=== PATIENT | female | born 1950 | race Caucasian/White ===

== ENCOUNTER 2019-09-22 13:59 | Outpatient (CLI) | payer MEDICARE, BC, SELFPAY ==
--- NOTE | 2019-09-22 14:34 | MM_ITS ---
WS: [id number] BILATERAL SCREENING DIGITAL MAMMOGRAM WITH CAD HISTORY: SCREENING COMPARISON: 08/27/2018 and 07/30/2017 Bilateral CC and MLO views submitted. Computer aided detection analyzed. Breast composition: There are scattered areas of fibroglandular density. No suspicious masses, microc alcifications or architectural distortion. Benign calcifications within each breast. MM/[place] [id number] IMPRESSION: BI-RADS: 2-Benign FOLLOW UP: 1 Year Follow-up
== END 2019-09-22 14:00 | disposition home or self-care (01) ==
PROVIDERS: Family Provider Internal Medicine; PCP Internal Medicine; Visit Provider Internal Medicine
DX: Z12.31 Encounter for screening mammogram for malignant neoplasm of breast (principal)
CPT/HCPCS: 77067

== ENCOUNTER 2020-03-07 14:54 | Outpatient (CLI) | payer MEDICARE, BC, SELFPAY ==
--- NOTE | 2020-03-07 15:00 | XR_ITS ---
WS: [id number] SCREENING DEXA SCAN Poly Adaptive CLINICAL INFORMATION: ASYMPTOMATIC POSTMENOPAUSAL STATUS COMPARISON: None. FINDINGS: The L1-L4 bone mineral density measures 1.339 g/cm2. This corresponds to a T score score of 1.3 and Z score of 2.2. Left femoral neck bone mineral density measures 1.108 g/cm2. This corresponds to a T score of 0.8 and Z score of 1.7. Right femoral neck bone mineral density measures 1.044 g/cm2. This corresponds to a T score 0.3of and Z score of 1.2. Mean femoral neck bone mineral density measures 1.076 g/cm2. This corresponds to a T score of 0.5 and Z score of 1.4. XR/XR DEXA axial skeleton* [id number] IMPRESSION: Normal bone mineralization. Patient's FRAX calculated 10 year probability for major osteoporotic fracture i s 8.7 % and osteoporotic hip fracture is 1.1%.
== END 2020-03-07 14:55 | disposition home or self-care (01) ==
LOC: RADWPI 14:59
PROVIDERS: Family Provider Internal Medicine; PCP Internal Medicine; Visit Provider Internal Medicine
DX: Z78.0 Asymptomatic menopausal state (principal)
CPT/HCPCS: 77080

== ENCOUNTER 2020-07-21 09:49 | Outpatient (CLI) | payer MEDICARE, BC, SELFPAY ==
--- NOTE | 2020-07-21 09:57 | US_ITS ---
WS: [id number] RENAL ULTRASOUND HISTORY: CKD STAGE 3 COMPARISON: None available. TECHNIQUE: 2-D and color Doppler imaging of the kidney submitted. Right kidney: 9.3 cm x 3.2 cm x 3.5 cm. Normal echogenicity with no hydronephrosis or mass. Left kidney: 9.4 cm x 3.7 cm x 4.2 cm. Normal echogenicity with no hydronephrosis or mass. Aorta: Normal. Urinary Bladder: Normal distention. US/US renal BI* [id number] IMPRESSION: Normal renal ultrasound.
== END 2020-07-21 09:50 | disposition home or self-care (01) ==
LOC: RAD 09:55
PROVIDERS: PCP Internal Medicine; Visit Provider Internal Medicine
DX: N18.30 Chronic kidney disease, stage 3 unspecified (principal)
CPT/HCPCS: 76770

== ENCOUNTER 2020-10-27 08:52 | Outpatient (CLI) | payer MEDICARE, BC, SELFPAY ==
--- NOTE | 2020-10-27 08:59 | MM_ITS ---
WS: [id number] BILATERAL SCREENING DIGITAL MAMMOGRAM WITH CAD HISTORY: SCREENING COMPARISON: 09/22/2019 and 08/27/2018 Bilateral CC and MLO views submitted. Computer aided detection analyzed. Breast composition: There are scattered areas of fibroglandular density. No suspicious masses, microc alcifications or architectural distortion. Benign rodlike calcifications and round calcifications in each breast. MM/[place] [id number] IMPRESSION: BI-RADS: 2-Benign FOLLOW UP: 1 Year Follow-up
== END 2020-10-27 08:53 | disposition home or self-care (01) ==
LOC: RADSHAW 08:58
PROVIDERS: PCP Internal Medicine; Visit Provider Internal Medicine
DX: Z12.31 Encounter for screening mammogram for malignant neoplasm of breast (principal)
CPT/HCPCS: 77067

== ENCOUNTER 2021-02-01 08:19 | Outpatient (CLI) | payer MEDICARE, BC, SELFPAY ==
--- NOTE | 2021-02-01 08:45 | USCV_ITS ---
Anahi Chan Age: 70 Gender: F : 1950 Exam Date: 02/01/2021 09:08 Ordering Phys: Charles Trinidad M.D ([email or web address]) Technologist: Exam Location: [facility] [place] Indication: AO PROS BP: 130 / 65 HR: 59 Rhythm: Sinus Technical Quality: Poor MEASUREMENTS (Male / Female) Normal Values 2D ECHO LV Diastolic Diameter PLAX 3.1 cm 4.2 - 5.9 / 3.9 - 5.3 cm LV Systolic Diameter PLAX 1.9 cm IVS Diastolic Thickness 1.1 cm 0.6 - 1.0 / 0.6 - 0.9 cm IVS Systolic Thickness 1.2 cm LVPW Diastolic Thickness 1.2 cm 0.6 - 1.0 / 0.6 - 0.9 cm LVPW Systolic Thickness 1.2 cm LVOT Diameter 2.0 cm LV Ejection Fraction 2D Teich 64.9 % LV Ejection Fraction MOD 2C 63.7 % LV Ejection Fraction 2C AL 65.0 % LA Diameter 3.2 cm LA Width 3.4 cm LA Height 4.2 cm RA Width 3.1 cm RA Height 3.6 cm DOPPLER AV Peak Velocity 169.3 cm/s LVOT Peak Velocity 96.0 cm/s AV Area Cont Eq vti 1.6 cm squared AV Area Cont Eq pk 1.8 cm squared MV Area PHT 5.0 cm squared Mitral E to A Ratio 1.2 MV E' Velocity 55.5 cm/s Mitral E to MV E' Ratio 9.7 Mitral E to LV E' Lateral Ratio 10.0 Mitral E to LV E' Septal Ratio 9.5 TR Peak Velocity 153.7 cm/s TR Peak Gradient 9.4 mmHg TV Peak E Velocity 85.0 cm/s Right Atrial Pressure 3.0 mmHg Pulmonary Artery Systolic Pressu 12.4 mmHg PV Peak Velocity 73.0 cm/s FINDINGS Left Ventricle Normal left ventricular size. LV systolic function is normal. Regional wall motion abormalities can not be assessed because of poor ultrasonic windows. Normal diastolic filling pattern. Right Ventricle The right ventricle is normal in size and function. Right Atrium Not well visualized Left Atrium Not well visualized Mitral Valve Grossly normal without significant stenosis or prolapse. There is mild mitral regurgitation. Aortic Valve Not well visualized. However, per history is a bioprosthetic valve. No significant stenosis. Mean gradient across the valve is 6mmHg. DVI is 0.48. There is no aortic regurgitation. Tricuspid Valve Not well visualized. No significant regurgitation or stenosis. Insufficient TR jet to calculate RVSP Pulmonic Valve Not well visualized Pericardium Normal pericardium without effusion. Aorta Not well visualized CONCLUSIONS This is technically challenging study because of poor ultrasonic windows. Limited visualization. Grossly LV systolic function is normal. Diastolic function is normal. Mild mitral regurgitation. Aortic valve is not well visualized however according to history bioprosthetic aortic valve. No significant stenosis seen. Mean gradient across the valve is 6 mmHg. DVI is 0.48 Compared to prior echocardiogram from 08/11/2015, aortic stenosis is no longer noted (secondary to valve replacement) Charles Trinidad MD (Electronically Signed) Final Date: 07 February 2021 12:52 S
== END 2021-02-01 08:20 | disposition home or self-care (01) ==
LOC: RAD 08:27
PROVIDERS: PCP Internal Medicine; Visit Provider Internal Medicine
DX: I65.23 Occlusion and stenosis of bilateral carotid arteries (principal); I34.0 Nonrheumatic mitral (valve) insufficiency; Z95.2 Presence of prosthetic heart valve
CPT/HCPCS: 93306

== ENCOUNTER 2021-11-23 10:03 | Outpatient (CLI) | payer MEDICARE, BC, SELFPAY ==
--- NOTE | 2021-11-23 10:08 | MM_ITS ---
WS: [id number] Bilateral screening 3D tomosynthesis digital mammogram, 11/23/2021 Clinical Data: SCREENING Comparison: 10/27/2020, 09/22/2019, 08/27/2018, 07/30/2017, 07/22/2016, 07/19/2015, 07/04/2014, 06/23/20 14, 06/23/2013, 03/30/2012, 03/20/2011, 03/19/2010, 03/17/2009. Findings: The breast parenchymal pattern shows fibroglandular tissue No spiculated masses or clustered calcific ations are seen. There are benign calcifications in both breasts. There are no secondary signs of car cinoma. There are numerous mole markers on both breasts. MM/[place] [id number] Impression: 1. Negative bilateral mammogram unchanged. 2. Recommend annual screening mammograms. BIRADS: 1-Negative FOLLOW UP: 1 Year Follow-up The CAD relay checker was used.
== END 2021-11-23 10:04 | disposition home or self-care (01) ==
LOC: RADSHAW 10:04
PROVIDERS: PCP Internal Medicine; Visit Provider Internal Medicine
DX: Z12.31 Encounter for screening mammogram for malignant neoplasm of breast (principal)
CPT/HCPCS: 77063; 77067

== ENCOUNTER → 2022-01-10 12:51 | Outpatient (BNVA) | payer MEDICARE, BC, SELFPAY | PROVIDERS: PCP Internal Medicine; Visit Provider Internal Medicine | DX: I10 Essential (primary) hypertension (principal); E78.5 Hyperlipidemia, unspecified; Z95.2 Presence of prosthetic heart valve | CPT/HCPCS: 99213; 99214 ==

== ENCOUNTER 2022-05-15 09:05 | Outpatient (CLI) | payer MEDICARE, BC, SELFPAY ==
--- NOTE | 2022-05-15 09:30 | USCV_ITS ---
Anahi Chan Age: 71 Gender: F : 1950 Exam Date: 05/15/2022 09:32 Ordering Phys: Charles Trinidad M.D ([email or web address]) Technologist: Lee Hagen Exam Location: [facility] [place] Indication: AO stenosis, history of AO valve replacement BP: 120 / 68 HR: 61 Rhythm: Sinus Technical Quality: Adequate, Technically difficult study MEASUREMENTS (Male / Female) Normal Values 2D ECHO LV Diastolic Diameter PLAX 3.7 cm 4.2 - 5.9 / 3.9 - 5.3 cm LV Systolic Diameter PLAX 2.4 cm IVS Diastolic Thickness 0.7 cm 0.6 - 1.0 / 0.6 - 0.9 cm IVS Systolic Thickness 0.8 cm LVPW Diastolic Thickness 0.8 cm 0.6 - 1.0 / 0.6 - 0.9 cm LVPW Systolic Thickness 1.1 cm LVOT Diameter 2.0 cm LV Ejection Fraction 2D Teich 66.4 % LV Ejection Fraction MOD 2C 73.9 % LV Ejection Fraction 2C AL 73.1 % LA Diameter 3.1 cm LA Width 2.8 cm LA Height 3.6 cm RA Width 2.7 cm RA Height 4.0 cm Aorta at Sinotubular Diameter 2.2 cm IVC Diameter 1.3 cm M-MODE Aortic Annulus Diameter 2.5 cm LA Ao Ratio MM 1.3 MV E Point Septal Separation 0.8 cm DOPPLER AV Peak Velocity 162.3 cm/s LVOT Peak Velocity 106.0 cm/s AV Area Cont Eq vti 2.1 cm squared AV Area Cont Eq pk 2.1 cm squared MV Peak Velocity 117.0 cm/s MV Area PHT 5.8 cm squared Mitral E to A Ratio 1.1 MV E' Velocity 40.5 cm/s Mitral E to MV E' Ratio 8.8 Mitral E to LV E' Lateral Ratio 7.5 Mitral E to LV E' Septal Ratio 10.8 TR Peak Velocity 276.3 cm/s TR Peak Gradient 30.5 mmHg TR Mean Velocity 211.5 cm/s TR Mean Gradient 19.0 mmHg TR Velocity Time Integral 84.9 cm Right Atrial Pressure 3.0 mmHg Pulmonary Artery Systolic Pressu 33.5 mmHg PV Peak Velocity 83.3 cm/s RV Acceleration Time 0.1 s RV Ejection Time 0.3 s RV AcT/ET 0.4 FINDINGS Left Ventricle Left ventricle is normal in size. LV systolic function is normal with EF of 55 to 60%. No regional wall motion abnormalities. Diastolic function is normal Right Ventricle Normal in size and function Right Atrium Normal in size Left Atrium Normal in size Mitral Valve Mild mitral annular calcification. Mild mitral regurgitation. Aortic Valve Possible prosthetic aortic valve. No significant stenosis or regurgitation. DVI is normal and is 0.65 Tricuspid Valve Mild tricuspid regurgitation. Insufficient TR jet to calculate RVSP Pulmonic Valve Mild pulmonic regurgitation Pericardium Normal Aorta Normal in size IVC IVC appears to be normal CONCLUSIONS Technically limited quality echocardiogram because of poor ultrasonic LV systolic function is normal with EF 55 to 60%. Diastolic function is normal. Mild mitral regurgitation Possible prosthetic aortic valve. No gross abnormalities Mild pulmonic regurgitation Compared to prior echocardiogram from 01/2021, no significant changes are seen Charles Trinidad MD (Electronically Signed) Final Date: 26 May 2022 15:38 S
== END 2022-05-15 09:06 | disposition home or self-care (01) ==
PROVIDERS: PCP Internal Medicine; Visit Provider Internal Medicine
DX: Z95.2 Presence of prosthetic heart valve (principal); Z86.79 Personal history of other diseases of the circulatory system
CPT/HCPCS: 93306

== ENCOUNTER → 2022-07-29 15:47 | Outpatient (BNVA) | payer MEDICARE, BC, SELFPAY | PROVIDERS: PCP Internal Medicine; Visit Provider Internal Medicine | DX: I10 Essential (primary) hypertension (principal); E78.5 Hyperlipidemia, unspecified; Z95.2 Presence of prosthetic heart valve; Z86.79 Personal history of other diseases of the circulatory system | CPT/HCPCS: 99214 ==

== ENCOUNTER 2022-11-27 07:35 | Outpatient (CLI) | payer MEDICARE, BC, SELFPAY ==
--- NOTE | 2022-11-27 07:50 | MM_ITS ---
WS: [id number] VIEWS: MLO and CC views both breasts. 3D digital tomosynthesis is also included in this exam. Comparison made with prior exam of 07/22/2016, 07/30/2017, 08/27/2018, 09/22/2019 and 10/27/2020, 2021.. Findings: There was no sign of mass, architectural distortion or suspicious calcification in either breast. Sc attered fibroglandular densities in both breasts. MM/[place] [id number] Impression: BI-RADS: 2-Benign FOLLOW-UP: 1 Year Follow-up This mammogram was also analyzed by the Computer Aided Detection System R2 Imag e Cyber Security Analyst.
== END 2022-11-27 07:36 | disposition home or self-care (01) ==
LOC: RAD 07:39
PROVIDERS: PCP Internal Medicine; Visit Provider Internal Medicine
DX: Z12.31 Encounter for screening mammogram for malignant neoplasm of breast (principal)
CPT/HCPCS: 77063; 77067

== ENCOUNTER → 2023-02-03 13:44 | Outpatient (BNVA) | payer MEDICARE, BC, SELFPAY | PROVIDERS: PCP Internal Medicine; Visit Provider Internal Medicine | DX: I10 Essential (primary) hypertension (principal); E78.5 Hyperlipidemia, unspecified; Z95.2 Presence of prosthetic heart valve; Z86.79 Personal history of other diseases of the circulatory system; Z79.82 Long term (current) use of aspirin | CPT/HCPCS: 99214 ==

== ENCOUNTER → 2023-06-10 14:53 | Outpatient (BNVA) | payer MEDICARE, BC, SELFPAY | PROVIDERS: PCP Internal Medicine; Visit Provider Podiatrist Foot & Ankle Surgery | DX: M19.071 Primary osteoarthritis, right ankle and foot; M21.612 Bunion of left foot; Q82.8 Other specified congenital malformations of skin; M21.621 Bunionette of right foot; M21.622 Bunionette of left foot | CPT/HCPCS: 73630; 99203 ==

== ENCOUNTER → 2023-08-05 15:14 | Outpatient (BNVA) | payer MEDICARE, BC, SELFPAY | PROVIDERS: PCP Internal Medicine; Visit Provider Internal Medicine | DX: I10 Essential (primary) hypertension (principal); E78.5 Hyperlipidemia, unspecified; Z95.2 Presence of prosthetic heart valve; Z86.79 Personal history of other diseases of the circulatory system | CPT/HCPCS: 99214 ==

== ENCOUNTER 2023-12-01 14:29 | Outpatient (CLI) | payer MEDICARE, BC, SELFPAY ==
--- NOTE | 2023-12-01 14:30 | US_ITS ---
WS: [id number] RENAL ULTRASOUND HISTORY: CHRONIC KIDNEY DZ/STAGE 3 COMPARISON: 07/21/2020 TECHNIQUE: 2-D and color Doppler imaging of the kidney submitted. Right kidney: 8.0 cm x 7.5 cm x 3.4 cm. Cortex: 1.0 cm Mild cortical atrophy has progressed since the prior study. No mass or obstruction. Left kidney: 8.1 cm x 3.2 cm x 3.9 cm. Cortex: 0.9 cm Mild cortical atrophy has progressed since the prior study. No obstruction of the kidney. No mass. Co rtical thinning. Aorta: Normal. Urinary Bladder: Nondistended bladder. IMPRESSION: 1. Mild progressive cortical atrophy and cortical thinning since 07/21/2020. 2. No obstruction.
== END 2023-12-01 14:30 | disposition home or self-care (01) ==
LOC: RAD 14:29
PROVIDERS: PCP Internal Medicine; Visit Provider Internal Medicine
DX: N18.30 Chronic kidney disease, stage 3 unspecified (principal)
CPT/HCPCS: 76770

== ENCOUNTER 2023-12-03 07:48 | Outpatient (CLI) | payer MEDICARE, BC, SELFPAY ==
--- NOTE | 2023-12-03 07:53 | MM_ITS ---
WS: [id number] BILATERAL SCREENING DIGITAL TOMOSYNTHESIS MAMMOGRAM WITH CAD HISTORY: SCREENING COMPARISON: 11/27/2022, 11/23/2021 and 10/27/2020 Bilateral CC and MLO views with tomosynthesis and synthetic mammography submitted. Computer aided det ection analyzed. Breast composition: There are scattered areas of fibroglandular density. No suspicious masses, microc alcifications or architectural distortion. Benign calcifications in each breast. IMPRESSION: MM/[place] [id number] BI-RADS: 2-Benign FOLLOW UP: 1 Year Follow-up
== END 2023-12-03 07:49 | disposition home or self-care (01) ==
LOC: RAD 07:49
PROVIDERS: PCP Internal Medicine; Visit Provider Internal Medicine
DX: Z12.31 Encounter for screening mammogram for malignant neoplasm of breast (principal)
CPT/HCPCS: 77063; 77067

== ENCOUNTER 2024-03-01 06:14 | Outpatient (CLI) | payer MEDICARE, BC, SELFPAY ==
--- NOTE | 2024-03-01 06:35 | US_ITS ---
WS: [id number] RIGHT UPPER QUADRANT ULTRASOUND HISTORY: Elevated Liver Enzymes COMPARISON: Renal ultrasound 12/01/2023 Liver: 14.3 cm in length. Normal size liver and echogenicity. No bile duct dilatation or mass. Portal Vein: Normal hepatopetal flow with monophasic waveform. Gallbladder: Slightly contracted. Numerous stones are present within the gallbladder. No gallbladder wall thickening. CBD: 0.3 cm Pancreas: Nonvisualization. Right kidney: 9.0 cm in length. Low normal size RIGHT kidney as noted on prior renal ultrasound of 12/01/2023. No obstruction. Aorta and IVC: Unremarkable abdominal aorta and IVC. No ascites. US/US abdomen limited [id number] IMPRESSION: 1. Cholelithiasis. Several stones are present in the gallbladder. No evidence for acute cholecystitis. 2. Normal bile duct. 3. Low normal size RIGHT kidney.
== END 2024-03-01 06:15 | disposition home or self-care (01) ==
LOC: RAD 06:19
PROVIDERS: PCP Internal Medicine; Visit Provider Internal Medicine
DX: R94.5 Abnormal results of liver function studies (principal); K80.20 Calculus of gallbladder without cholecystitis without obstruction
CPT/HCPCS: 76705

== ENCOUNTER → 2024-05-04 15:14 | Outpatient (BNVA) | payer MEDICARE, BC, SELFPAY | PROVIDERS: PCP Internal Medicine; Visit Provider Internal Medicine | DX: Z95.2 Presence of prosthetic heart valve (principal); I10 Essential (primary) hypertension; E78.5 Hyperlipidemia, unspecified; Z86.79 Personal history of other diseases of the circulatory system | CPT/HCPCS: 99214 ==

== ENCOUNTER 2024-06-08 11:39 | Outpatient (CLI) | payer MEDICARE, BC, SELFPAY ==
--- NOTE | 2024-06-08 12:00 | USCV_ITS ---
Anahi Chan Age: 73 Gender: F : 1950 Exam Date: 06/08/2024 11:56 Ordering Phys: Charles Trinidad M.D ([email or web address]) Technologist: [place] [facility] [place]: BP: 132 / 60 HR: 55 Rhythm: Sinus Technical Quality: Adequate MEASUREMENTS (Male / Female) Normal Values 2D ECHO LVOT Diameter 2.0 cm LV Ejection Fraction MOD 4C 61.2 % LV Ejection Fraction MOD 2C 59.0 % LV Ejection Fraction 2C AL 60.8 % LA Diameter 3.8 cm RA Systolic Volume 4C AL 24.9 ml RA Systolic Volume 4C MOD 25.5 ml LA Sys Volume AL 43.6 cm cubed LA Sys Volume Index AL 23.1 cm cubed/m squared Aorta at Sinotubular Diameter 2.6 cm IVC Diameter 2.0 cm DOPPLER AV Peak Velocity 248.0 cm/s LVOT Peak Velocity 120.0 cm/s AV Area Cont Eq vti 2.1 cm squared AV Area Cont Eq pk 1.6 cm squared MV Peak Velocity 105.0 cm/s MV Area PHT 3.7 cm squared Mitral E to A Ratio 0.8 TV Peak Velocity 266.5 cm/s TR Peak Velocity 300.0 cm/s TR Peak Gradient 36.0 mmHg TV Peak E Velocity 63.0 cm/s Right Atrial Pressure 3.0 mmHg Pulmonary Artery Systolic Pressu 39.0 mmHg PV Peak Velocity 83.0 cm/s FINDINGS Left Ventricle Normal left ventricular size, systolic function and wall thickness, with no regional wall motion abnormalities. Left ventricular ejection fraction is estimated at 60 %. Grade I/IV diastolic dysfunction (abnormal relaxation filling pattern), normal to mildly elevated filling pressures. Right Ventricle The right ventricle is normal in size and function. Mild pulmonary hypertension. Right Atrium The right atrium is normal in size. Left Atrium Mildly increased left atrial size. Mitral Valve Thickened mitral valve. Moderate mitral valve regurgitation. Aortic Valve Moderate aortic valve calcification. No aortic valve stenosis. Trace aortic valve regurgitation. Tricuspid Valve Structurally normal tricuspid valve without significant stenosis or regurgitation. Pulmonary artery systolic pressure is normal. Pulmonic Valve Mild pulmonary valve regurgitation. Pericardium Normal pericardium without effusion. Aorta Normal ascending aorta dimension. IVC The inferior vena cava appears normal. CONCLUSIONS Normal left ventricular size, systolic function and wall thickness, with no regional wall motion abnormalities. Left ventricular ejection fraction is estimated at 60 %. Grade I/IV diastolic dysfunction (abnormal relaxation filling pattern), normal to mildly elevated filling pressures. Thickened mitral valve. Moderate mitral valve regurgitation. Mild pulmonary valve regurgitation. There is no pericardial effusion. Pulmonary artery systolic pressure is mildly increased. Right atrial pressure is around 10 mm of mercury. Alexis Dejesus MD (Electronically Signed) Final Date: 09 June 2024 06:18 S
== END 2024-06-08 11:40 | disposition home or self-care (01) ==
LOC: RAD 11:40
PROVIDERS: PCP Internal Medicine; Visit Provider Internal Medicine
DX: Z95.2 Presence of prosthetic heart valve (principal); I50.30 Unspecified diastolic (congestive) heart failure; I34.81 Nonrheumatic mitral (valve) annulus calcification
CPT/HCPCS: 93306

== ENCOUNTER 2024-12-10 08:10 | Outpatient (CLI) | payer MEDICARE, BC, SELFPAY ==
--- NOTE | 2024-12-10 08:15 | MM_ITS ---
WS: [id number] BILATERAL SCREENING DIGITAL TOMOSYNTHESIS MAMMOGRAM WITH CAD HISTORY: SCREENING COMPARISON: 12/03/2023, 11/27/2022, 08/27/2018 Bilateral CC and MLO views with tomosynthesis and synthetic mammography submitted. Computer aided detection analyzed. Breast composition: There are scattered areas of fibroglandular density. No suspicious masses, microcalcifications or architectural distortion. Benign round and rodlike calcifications within each breast. MM/MM scr tomosynthesis [id number] IMPRESSION: BI-RADS: 2 - Benign. FOLLOW UP: 1 Year Follow-up
== END 2024-12-10 08:11 | disposition home or self-care (01) ==
PROVIDERS: PCP Internal Medicine; Visit Provider Internal Medicine
DX: Z12.31 Encounter for screening mammogram for malignant neoplasm of breast (principal); R92.323 Mammographic fibroglandular density, bilateral breasts; R92.1 Mammographic calcification found on diagnostic imaging of breast
CPT/HCPCS: 77063; 77067

== ENCOUNTER → 2025-02-01 14:58 | Outpatient (BNVA) | payer MEDICARE, BC, SELFPAY | PROVIDERS: PCP Internal Medicine; Visit Provider Internal Medicine | DX: I10 Essential (primary) hypertension (principal); E78.5 Hyperlipidemia, unspecified; Z86.79 Personal history of other diseases of the circulatory system; Z79.82 Long term (current) use of aspirin; Z95.2 Presence of prosthetic heart valve | CPT/HCPCS: 99213 ==

== ENCOUNTER 2025-05-12 23:16 | Emergency (ER) | payer MEDICARE, BC, SELFPAY ==
[2025-05-12 23:24] VITALS: BP 137/80; PULSE 70; RESP 16; TEMP 36.8; O2SAT 97; BMI 34.7
--- OUTSIDE RECORDS SUMMARY | 2025-05-12 23:27 | XMS_ITS | Clinical Summary ---
Author Organization [facility] Address [address] [place]da: [place] [address] Care Team Providers Care Woods Manager Name Role Phone Roxanna Diaz MD Primary Care Provider [phone]- [phone] Allergies Active Allergy Reactions Criticality Noted Date Comments Adhesive Rash Low 11/23/2015 Penicillins Other (See Comments) 10/24/2015 Childhood allergy, does not remember reaction. Medications acetaminophen (TYLENOL ARTHRITIS) 650 mg Extended Release tablet Take 1 Tablet (650 mg) by mouth every 6 hours as needed for Pain. 120 Tablet 0 6 Active metoprolol tartrate (LOPRESSOR) 50 mg tablet Take 50 mg by mouth 2 times daily. 6 Active levothyroxine 125 mcg tablet Take 125 mcg by mouth daily peanut roaster. 6 Active furosemide (LASIX) 20 mg tablet Take 1 Tablet (20 mg) by mouth 1 time daily as needed for Other (See Comment) (For weight gain of 3# in 1 day or 5# in 1 week.). 30 Tablet 0 6 Active aspirin (ECOTRIN EC) 81 mg Tablet, Delayed Release (E.C.) Take 81 mg by mouth daily. 6 Active albuterol sulfate HFA 90 mcg/actuation aerosol inhaler Take 2 Puffs by inhalation every 6 hours as needed for Shortness of Breath. 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 Gender Identity Not on file Sexual Orientation Not on file Last Filed Vital Signs Vital Sign Reading Time Taken Comments Blood Pressure 136/74 12/20/2015 9:17 AM CDT Pulse 72 12/20/2015 9:17 AM CDT Temperature 36.9 C (98.4 F) 11/27/2015 11:07 AM CDT Respiratory Rate 18 11/27/2015 11:07 AM CDT Oxygen Saturation - - Inhaled Oxygen Concentration - - Weight 93 kg (205 lb) 12/20/2015 9:17 AM CDT Height 157.5 cm (5' 2 ) 12/20/2015 9:17 AM CDT Body Mass Index 37.49 12/20/2015 9:17 AM CDT Plan of Treatment Health Maintenance Due Date Last Done Comments DTAP/TDAP/TD VACCINES (1 - Tdap) 1968 COLORECTAL SCREENING 1994 Colorectal Cancer Screening 1994 FIT-DNA Q 3 years 1994 FIT/FOBT Q 1 year 1994 Flex Sig/CT Colonography Q 5 years 1994 PNEUMOCOCCAL VACCINE 50+ YEARS (1 of 1 - PCV) 12/12/19 00 ZOSTER VACCINE (1 of 2) 12/12/1999 OSTEOPOROSIS SCREENING 2014 RSV VACCINE (60+ or ) (1 - 1-dose 75+ series) 2024 INFLUENZA VACCINE (#1) 2025 06/21/2015 Medical Devices Implanted Type Area Manager Of Medical Device Identifier Shelf Expiration Date Model / Serial / Lot [place] Ptfe Thck 1.6mmx2.5x10.2 cm [id number] - [id number] Implanted:Qty: 1 on 11/24/2015 by Zach Winslow MD Graft N/A: Chest [employer] 07/29/2020 [id number] / / [id number] Valve Aortic Magna Ease 21mm [id number] - [id number] Implanted:Qty: 1 on 11/24/2015 by Kelly Byrnes MD Valve N/A: Aorta [employer] 05/28/2019 [id number] / [id number] / Care Teams Woods Manager Relationship Specialty Start Date End Date Roxanna Diaz MD [address] [place] [address] PCP - General Internal Medicine 10/24/15
--- OUTSIDE RECORDS SUMMARY | 2025-05-12 23:27 | XMS_ITS | Clinical Summary ---
Author Organization [facility] Address [address] [place] [address] Phone Care Team Providers Care Ethylbenzene Cracking Supervisor Name Role Phone Rxoanna Diaz MD Primary Care Provider +1- [phone] Allergies Active Allergy Reactions Criticality Noted Date Comments Adhesive Rash Low 11/23/2015 Penicillins Other (See Comments) 10/24/2015 Childhood allergy, does not remember reaction. Medications metoprolol tartrate (LOPRESSOR) 50 mg tablet Take 50 mg by mouth 2 times daily. Active levothyroxine 125 mcg tablet Take 125 mcg by mouth daily manager domestic. Active aspirin (ECOTRIN EC) 81 mg Tablet, Delayed Release (E.C.) Take 81 mg by mouth daily. Active albuterol HFA 90 mcg inhaler Take 2 Puffs by inhalation every 6 hours as needed for Shortness of Breath. Active acetaminophen (TYLENOL 8 HOUR) 650 mg Extended Release tablet Take 1 Tablet (650 mg) by mouth every 6 hours as needed for Pain. 120 Tablet 0 6 Active furosemide (LASIX) 20 mg tablet Take 1 Tablet (20 mg) by mouth 1 time daily as needed for Other (See Comment) (For weight gain of 3# in 1 day or 5# in 1 week.). 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 Gender Identity Not on file Sexual Orientation Not on file Last Filed Vital Signs Vital Sign Reading Time Taken Comments Blood Pressure 136/74 12/20/2015 9:17 AM CDT Pulse 72 12/20/2015 9:17 AM CDT Temperature 36.9 C (98.4 F) 11/27/2015 11:07 AM CDT Respiratory Rate 18 11/27/2015 11:07 AM CDT Oxygen Saturation 96% 12/20/2015 9:17 AM CDT Inhaled Oxygen Concentration - - Weight 93 [...] 2025 06/21/2015 Medical Devices Implanted Type Area Chain Forming Machine Operator Device Identifier Shelf Expiration Date Model / Serial / Lot [place] Ptfe Thck 1.6mmx2.5x10.2cm [id number] - [id number] Implanted:Qty: 1 on 11/24/2015 by Zach Winslow MD at [facility] Graft N/A: Chest CR [employer] 07/29/2020 [id number] / / [id number] Valve Aortic Magna Ease 21mm [id number] - [id number] Implanted:Qty: 1 on 11/24/2015 by Kelly Byrnes MD at [facility] Valve N/A: Aorta [employer] 05/28/2019 [id number] / [id number] / Insurance RD [address] [place] [address] MEDICARE PART A AND B [facility] Advance Directives For more information, please contact: [phone] * Full Code (Latest Code Status on File) Date Activated Date Inactivated Comments 11/24/2015 2:28 PM 11/27/2015 3:21 PM Care Teams Ethylbenzene Cracking Supervisor Relationship Specialty Start Date End Date Roxanna Diaz MD [address] [place] [address] PCP - General Internal Medicine 10/24/15
--- NOTE | 2025-05-12 23:42 | CTR_ITS ---
PROCEDURE INFORMATION: Exam: CT Abdomen And Pelvis Without Contrast Exam date and time: 05/13/2025 12:50 AM Age: 74 years old Clinical indication: Other: Vaginal bleeding TECHNIQUE: Imaging protocol: Computed tomography of the abdomen and pelvis without contrast. Radiation optimization: All CT scans at this facility use at least one of these dose optimization techniques: automated exposure control; mA and/or kV adjustment per patient size (includes targeted exams where dose is matched to clinical indication); or iterative reconstruction. COMPARISON: US abdomen limited [id number] 03/01/2024 6:39 AM RADIATION DOSE METRICS: Total DLP (mGy-cm): 935.43 FINDINGS: Lungs: Calcified granulomas are seen scattered throughout the lung, which can be seen setting prior granulomatous disease. Diaphragm: A small hiatal hernia is present. Liver: Normal. No mass. Gallbladder and biliary ducts: Hyperattenuating material within the gallbladder lumen may represent biliary sludge. Pancreas: Normal. No ductal dilation. Spleen: Parenchymal calcifications are seen throughout the spleen, likely reflecting prior granulomatous changes. The spleen is otherwise normal. Adrenal glands: Calcification of the left adrenal gland, which may represent sequela of prior trauma/infection. No nodularity. Kidneys and ureters: Normal. No hydronephrosis. Stomach and bowel: Unremarkable. No obstruction. No mucosal thickening. Appendix: No evidence of appendicitis. Intraperitoneal space: Unremarkable. No free air. No significant fluid collection. Vasculature: Mild atherosclerosis of the aorta and its major branching vessels is noted. 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 Lymph nodes: Unremarkable. No enlarged lymph nodes. Urinary bladder: Unremarkable as visualized. Reproductive: Endometrial thickening measuring up to 1.4 cm. Cervical thickening measuring up to 2.2 cm. Bones/joints: Degenerative joint and disc disease is seen in the imaged spine. A mild thoracolumbar dextrocurvature with associated degenerative changes noted. Soft tissues: Unremarkable. CT/CT abdomen pelvis wo con [id number] IMPRESSION: 1. Endometrial and cervical thickening in the setting of vaginal bleeding. Pelvic sonogram or MRI pelvis with and without contrast is warranted to evaluate for underlying malignancy. 2. Suggested biliary sludge without evidence of acute cholecystitis. 3. 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
--- NOTE | 2025-05-13 00:08 | W.ED.FEMALGU ---
Documented by User: STEVEN Curtis 05/15/25 09:02 HPI - Female Genitourinary General: Chief complaint: Vaginal Bleeding Stated complaint: vag bleeding wont stop Time Seen by Provider: 05/12/25 23:21 Source: patient Mode of arrival: ambulatory Limitations: no limitations History of Present Illness: Patient is a 74-year-old female who presents the emergency department complaining of vaginal bleeding that began tonight around 2129. States that it began as brownish spotting, but turned into bright red blood with passing clots. She is not anticoagulated, denies any recent sexual intercourse. States that she is confident that this is gynecological source and not rectal, though she does note a history of hemorrhoids. No abnormal Pap or vaginal exams recently. She states that she has had some intermittent lower abdominal cramping and 1 episode of lightheadedness with ambulation, but that this was transient and has no symptoms at this time. States that she is postmenopausal, no history of HPV. No history of cancer, no history of hysterectomy. She is noting mild atrophic vaginitis but otherwise no other gynecological history. No history of endometriosis. Her vitals are stable at this time, blood pressure is normal and heart rate is normal. No urinary symptoms. MD elicited complaint: vaginal bleeding Onset (ago): hour(s) Severity: mild Quality of pain: cramping Consistency: intermittent Vaginal bleeding: moderate and clots Associated symptoms: Deny abdominal pain, headache(s), nausea or vaginal discharge Related Data Home Medications ?Medication ?Instructions ?Recorded ?Confirmed albuterol sulfate 90 mcg/actuation 1 inh inhalation QID 05/15/20 02/01/25 aerosol inhaler aspirin 81 mg tablet,delayed 81 mg PO DAILY 05/15/20 02/01/25 release (Adult Aspirin Regimen) atorvastatin 10 mg tablet 10 mg PO DAILY 05/15/20 02/01/25 cholecalciferol (vitamin D3) 50 50 mcg PO DAILY 05/15/20 02/01/25 mcg (2,000 unit) capsule levothyroxine 100 mcg tablet 100 mcg PO DAILY 05/15/20 02/01/25 (Synthroid) metoprolol tartrate 50 mg tablet 50 mg PO BID 05/15/20 02/01/25 Previous Rx's ?Medication ?Instructions ?Recorded chlorthalidone 25 mg tablet See Rx Instructions .Route 06/28/24 .COMPLEX #90 tabs lisinopril 10 mg tablet See Rx Instructions .Route 06/28/24 .COMPLEX #90 tabs Allergies Allergy/AdvReac Type Severity Reaction Status Date / Time Iodinated Contrast Media Allergy unknown Verified 02/01/25 15:42 Penicillins Allergy N/V Verified 02/01/25 15:42 Review of Systems General: Reports: 10 or more systems reviewed and unremarkable except in HPI and below Const: Denies: fever(s), chills, change in appetite, change in weight or diaphoresis ENMT: Denies: throat pain or hoarseness Card: Reports: lightheadedness; Denies: chest pain or palpitations Resp: Denies: dyspnea, productive cough or wheezing GI: Reports: GI cramping; Denies: abdominal pain, nausea, vomiting, diarrhea, constipation, bloating, change in stool character or hematochezia : Reports: vaginal dryness and vaginal bleeding; Denies: flank pain, difficulty voiding, dysuria, urinary frequency, urinary urgency or vaginal discharge Musc: Denies: neck pain or back pain Skin/Breast: Denies: rash or new lesions Neuro: Denies: headache(s) or dizziness PFSH ED PFSH: Medical History History of hypertension Hx of hyperlipidemia History of asthma Hx of carotid stenosis Surgical History Hx of aortic valve replacement Family History Other Hypertension Social History Smoking and tobacco/nicotine status: never used tobacco/nicotine Alcohol intake: never Substance/Drug Use: never Physical Exam Const: COMMON NORMALS: no acute distress, average body habitus, patient oriented x3, no limitations, healthy appearing, alert and well nourished GENERAL APPEARANCE: cooperative and comfortable ORIENTATION/CONSCIOUSNESS: Yes awake Neck/C-Spine: COMMON NORMALS: full ROM, supple, no meningeal signs and no JVD Resp: COMMON NORMALS: normal respiratory effort, No retractions, No use of accessory muscles and clear to auscultation bilaterally AUSCULTATION: clear to auscultation bilaterally, no crackles, no rales, no rhonchi and no wheezes Cardio: COMMON NORMALS: no JVD, regular rate, regular rhythm, No gallops present (Cardio), No clicks present (Cardio), No murmurs present (Cardio), No rub (Cardio) and Peripheral pulses 2+ throughout RATE: regular rate RHYTHM: regular rhythm PERIPHERAL PULSES: Peripheral pulses 2+ throughout GI: COMMON NORMALS: Normal to inspection, nondistended, normoactive bowel sounds present, Soft to palpation, non-tender, No hepatosplenomegaly present and no masses AUSCULTATION: Yes normoactive bowel sounds PALPATION: Yes Soft to palpation, No Guarding due to palpation present (GI), No Rigid due to palpation and Yes No hepatosplenomegaly present RECTAL EXAM: deferred : COMMON NORMALS: Yes no CVA tenderness BLADDER/KIDNEY EXAM: Yes no CVA tenderness Back/Pelvis: COMMON NORMALS: no CVA tenderness Extremity: COMMON NORMALS: normal to inspection and full ROM Neuro: COMMON NORMALS: patient oriented x3, moves all extremities, no focal motor deficits and no sensory deficits noted SENSORIUM/ORIENTATION: Yes alert MENINGEAL SIGNS: Yes no meningeal signs Psych: COMMON NORMALS: mental status grossly normal, cooperative and speech normal SPEECH: Yes normal speech Skin: COMMON NORMALS: no rashes or lesions noted GENERAL SKIN EXAM: no rashes or lesions noted Course Vital Signs: Vital signs: Vital Signs Temperature 98.2 F 05/12/25 23:24 Pulse Rate 63 05/13/25 01:38 Respiratory Rate 16 05/13/25 01:38 Blood Pressure 132/75 05/13/25 01:38 Pulse Oximetry 99 05/13/25 01:38 Oxygen Delivery Me thod Room Air 05/12/25 23:24 [facility] - Female Lab Data 05/12/25 23:58 05/12/25 23:58 Radiology Impressions Abdomen/Pelvis CT 05/12/25 23:42 IMPRESSION: 1. Endometrial and cervical thickening in the setting of vaginal bleeding. Pelvic sonogram or MRI pelvis with and without contrast is warranted to evaluate for underlying malignancy. 2. Suggested biliary sludge without evidence of acute cholecystitis. 3. 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 Laboratory Results WBC 7.90 10^3/uL (3.29-11.43) 05/12/25 23:58 RBC 4.55 10^6/uL (3.85-5.65) 05/12/25 23:58 Hgb 14.10 g/dL (11.27-16.99) 05/12/25 23:58 Hct 41.5 % (36-47) 05/12/25 23:58 MCV 91.2 fl (85-98) 05/12/25 23:58 MCH 31.0 pg (27-33) 05/12/25 23:58 MCHC 34.0 g/dL (30-55) 05/12/25 23:58 RDW 12.3 % (12.1-15.1) 05/12/25 23:58 Plt Count 161 10^3/cmm (157-399) 05/12/25 23:58 MPV 9.5 fL (7.4-10.4) 05/12/25 23:58 Neut % (Auto) 61.9 % 05/12/25 23:58 Lymph % (Auto) 26.1 % 05/12/25 23:58 [place]borne % (Auto) 8.0 % 05/12/25 23:58 Eos % (Auto) 3.0 % 05/12/25 23:58 Baso % (Auto) 0.5 % 05/12/25 23:58 Neut # (Auto) 4.89 10^3/uL (1.8-7.7) 05/12/25 23:58 Lymph # (Auto) 2.1 10^3/uL (0.8-4.8) 05/12/25 23:58 [place] # (Auto) 0.6 10^3/uL (0.2-0.9) 05/12/25 23:58 Eos # (Auto) 0.2 10^3/uL (0.0-0.8) 05/12/25 23:58 Baso # (Auto) 0.0 10^3/uL (0.0-0.1) 05/12/25 23:58 Nucleated RBC % (auto) 0 % 05/12/25 23:58 Nucleated RBCs # 0.0 /100WBC 05/12/25 23:58 PT 13.00 SECONDS (12.1-14.9) 05/12/25 23:58 INR 0.91 (0.8-1.2) 05/12/25 23:58 APTT 29.4 SECONDS (23.9-36.7) 05/12/25 23:58 Sodium 139 mmol/L (136-145) 05/12/25 23:58 Potassium 3.7 mmol/L (3.5-5.1) 05/12/25 23:58 Chloride 100 mmol/L (98-107) 05/12/25 23:58 Carbon Dioxide 26 mmol/L (22-29) 05/12/25 23:58 Anion Gap 16.7 (5-19) 05/12/25 23:58 BUN 28 mg/dL (8-23) H 05/12/25 23:58 Creatinine 1.7 mg/dL (0.5-0.9) H 05/12/25 23:58 GFR Calculation Not Reportable 05/12/25 23:58 Glucose 116 mg/dL (65-115) H 05/12/25 23:58 Calculated Osmolality 294 mOsm/kg (285-295) 05/12/25 23:58 Lactic Acid 1.3 mmol/L (0.5-2.2) 05/12/25 23:58 Calcium 9.4 mg/dL (8.5-10.5) 05/12/25 23:58 Total Bilirubin 0.3 mg/dL (0.15-1.2) 05/12/25 23:58 AST 26 U/L (0-32) 05/12/25 23:58 ALT 20 U/L (0-33) 05/12/25 23:58 Alkaline Phosphatase 158 U/L (35-105) H 05/12/25 23:58 Total Protein 7.1 g/dL (6.6-8.7) 05/12/25 23:58 Albumin 4.1 g/dL (3.5-5.2) 05/12/25 23:58 Globulin 3.0 g/dL (1.3-4.6) 05/12/25 23:58 Urine Color Red (Yellow) A 05/13/25 00:17 Urine Appearance Cloudy (CLEAR) A 05/13/25 00:17 Urine pH Not Reportable 05/13/25 00:17 Ur Specific [place] Not Reportable 05/13/25 00:17 Urine Protein Not Reportable 05/13/25 00:17 Urine Glucose (UA) Not Reportable 05/13/25 00:17 Urine Ketones Not Reportable 05/13/25 00:17 Urine Blood Not Reportable 05/13/25 00:17 Urine Nitrate Not Reportable 05/13/25 00:17 Urine Bilirubin Not Reportable 05/13/25 00:17 Urine Urobilinogen Not Reportable 05/13/25 00:17 Ur Leukocyte Esterase Not Reportable 05/13/25 00:17 Urine RBC >100 /hpf (0-2) H 05/13/25 00:17 Urine WBC 5-10 /hpf (0-5) H 05/13/25 00:17 Ur Squamous Epith Cells 0-4 /hpf (0-5) H 05/13/25 00:17 Amorphous Sediment Not Reportable 05/13/25 00:17 Urine Bacteria None /hpf (NONE) 05/13/25 00:17 Blood Type A Negative 05/12/25 23:58 Rho(D) Type Rh negative 05/12/25 23:58 Antibody Screen Negative 05/12/25 23:58 All radiology interpretation(s) finalized by discharge Discharge Plan Discharge Patient Disposition: Home Clinical Impression: Vaginal bleeding Condition: Stable Prescriptions: No Action aspirin [Adult Aspirin Regimen] 81 mg tablet,delayed release (DR/EC) 81 mg PO DAILY metoprolol tartrate 50 mg tablet 50 mg PO BID levothyroxine [Synthroid] 100 mcg tablet 100 mcg PO DAILY atorvastatin 10 mg tablet 10 mg PO DAILY cholecalciferol (vitamin D3) 50 mcg (2,000 unit) capsule 50 mcg PO DAILY albuterol sulfate 90 mcg/actuation HFA aerosol inhaler 1 inh INHALATION QID chlorthalidone 25 mg tablet See Rx Instructions .ROUTE .COMPLEX Qty: 90 3RF Dose Instruction: TAKE 1 TABLET BY MOUTH EVERY DAY Rx Instructions: TAKE 1 TABLET BY MOUTH EVERY DAY lisinopril 10 mg tablet See Rx Instructions .ROUTE .COMPLEX Qty: 90 3RF Dose Instruction: TAKE 1 TABLET BY MOUTH EVERY DAY Rx Instructions: TAKE 1 TABLET BY MOUTH EVERY DAY Discharge Orders: Discharge ED (Routine); Ordered 05/13/25 Ordered By: Francisco J Yoder Referrals: Roxanna Diaz MD [Primary Care Provider, Internal Medicine] Stephen Mcrae MD [Physician, [facility]] - 4-7 days Discharge Diet: Advance as tolerated Discharge Activity: Resume usual activity Patient Instructions: Abnormal (Dysfunctional) Uterine Bleeding (ED) Print Language: Maldivian Coding Level of Care Code ED Pack Master for Chg Fwd Documented by User: Francisco J Yoder MD 05/13/25 01:59 HPI - Female Genitourinary General: Chief complaint: Vaginal Bleeding Stated complaint: vag bleeding wont stop Time Seen by Provider: 05/12/25 23:21 Related Data Home Medications ?Medication ?Instructions ?Recorded ?Confirmed albuterol sulfate 90 mcg/actuation 1 inh inhalation QID 05/15/20 02/01/25 aerosol inhaler aspirin 81 mg tablet,delayed 81 mg PO DAILY 05/15/20 02/01/25 release (Adult Aspirin Regimen) atorvastatin 10 mg tablet 10 mg PO DAILY 05/15/20 02/01/25 cholecalciferol (vitamin D3) 50 50 mcg PO DAILY 05/15/20 02/01/25 mcg (2,000 unit) capsule levothyroxine 100 mcg tablet 100 mcg PO DAILY 05/15/20 02/01/25 (Synthroid) metoprolol tartrate 50 mg tablet 50 mg PO BID 05/15/20 02/01/25 Previous Rx's ?Medication ?Instructions ?Recorded chlorthalidone 25 mg tablet See Rx Instructions .Route 06/28/24 .COMPLEX #90 tabs lisinopril 10 mg tablet See Rx Instructions .Route 06/28/24 .COMPLEX #90 tabs Allergies Allergy/AdvReac Type Severity Reaction Status Date / Time Iodinated Contrast Media Allergy unknown Verified 02/01/25 15:42 Penicillins Allergy N/V Verified 02/01/25 15:42 [facility] ED PFSH: Medical History History of hypertension Hx of hyperlipidemia History of asthma Hx of carotid stenosis Surgical History Hx of aortic valve replacement Family History Other Hypertension Social History Smoking and tobacco/nicotine status: never used tobacco/nicotine Alcohol intake: never Substance/Drug Use: never Course Vital Signs: Vital signs: Vital Signs Temperature 98.2 F 05/12/25 23:24 Pulse Rate 63 05/13/25 01:38 Respiratory Rate 16 05/13/25 01:38 Blood Pressure 132/75 05/13/25 01:38 Pulse Oximetry 99 05/13/25 01:38 Oxygen Delivery Me thod Room Air 05/12/25 23:24 MDM - Female Medical Decision Making Patient presents here with vaginal bleeding she does have some cervical thickening on CT her hemoglobin here is normal no signs of infection we will get her follow-up with [facility] she is return if worsening she understands agrees to plan. Lab Data 05/12/25 23:58 05/12/25 23:58 Radiology Impressions Abdomen/Pelvis CT 05/12/25 23:42 IMPRESSION: 1. Endometrial and cervical thickening in the setting of vaginal bleeding. Pelvic sonogram or MRI pelvis with and without contrast is warranted to evaluate for underlying malignancy. 2. Suggested biliary sludge without evidence of acute cholecystitis. 3. 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 Laboratory Results WBC 7.90 10^3/uL (3.29-11.43) 05/12/25 23:58 RBC 4.55 10^6/uL (3.85-5.65) 05/12/25 23:58 Hgb 14.10 g/dL (11.27-16.99) 05/12/25 23:58 Hct 41.5 % (36-47) 05/12/25 23:58 MCV 91.2 fl (85-98) 05/12/25 23:58 MCH 31.0 pg (27-33) 05/12/25 23:58 MCHC 34.0 g/dL (30-55) 05/12/25 23:58 RDW 12.3 % (12.1-15.1) 05/12/25 23:58 Plt Count 161 10^3/cmm (157-399) 05/12/25 23:58 MPV 9.5 fL (7.4-10.4) 05/12/25 23:58 Neut % (Auto) 61.9 % 05/12/25 23:58 Lymph % (Auto) 26.1 % 05/12/25 23:58 [place] % (Auto) 8.0 % 05/12/25 23:58 Eos % (Auto) 3.0 % 05/12/25 23:58 Baso % (Auto) 0.5 % 05/12/25 23:58 Neut # (Auto) 4.89 10^3/uL (1.8-7.7) 05/12/25 23:58 Lymph # (Auto) 2.1 10^3/uL (0.8-4.8) 05/12/25 23:58 [place] # (Auto) 0.6 10^3/uL (0.2-0.9) 05/12/25 23:58 Eos # (Auto) 0.2 10^3/uL (0.0-0.8) 05/12/25 23:58 Baso # (Auto) 0.0 10^3/uL (0.0-0.1) 05/12/25 23:58 Nucleated RBC % (auto) 0 % 05/12/25 23:58 Nucleated RBCs # 0.0 /100WBC 05/12/25 23:58 PT 13.00 SECONDS (12.1-14.9) 05/12/25 23:58 INR 0.91 (0.8-1.2) 05/12/25 23:58 APTT 29.4 SECONDS (23.9-36.7) 05/12/25 23:58 Sodium 139 mmol/L (136-145) 05/12/25 23:58 Potassium 3.7 mmol/L (3.5-5.1) 05/12/25 23:58 Chloride 100 mmol/L (98-107) 05/12/25 23:58 Carbon Dioxide 26 mmol/L (22-29) 05/12/25 23:58 Anion Gap 16.7 (5-19) 05/12/25 23:58 BUN 28 mg/dL (8-23) H 05/12/25 23:58 Creatinine 1.7 mg/dL (0.5-0.9) H 05/12/25 23:58 GFR Calculation Not Reportable 05/12/25 23:58 Glucose 116 mg/dL (65-115) H 05/12/25 23:58 Calculated Osmolality 294 mOsm/kg (285-295) 05/12/25 23:58 Lactic Acid 1.3 mmol/L (0.5-2.2) 05/12/25 23:58 Calcium 9.4 mg/dL (8.5-10.5) 05/12/25 23:58 Total Bilirubin 0.3 mg/dL (0.15-1.2) 05/12/25 23:58 AST 26 U/L (0-32) 05/12/25 23:58 ALT 20 U/L (0-33) 05/12/25 23:58 Alkaline Phosphatase 158 U/L (35-105) H 05/12/25 23:58 Total Protein 7.1 g/dL (6.6-8.7) 05/12/25 23:58 Albumin 4.1 g/dL (3.5-5.2) 05/12/25 23:58 Globulin 3.0 g/dL (1.3-4.6) 05/12/25 23:58 Urine Color Red (Yellow) A 05/13/25 00:17 Urine Appearance Cloudy (CLEAR) A 05/13/25 00:17 Urine pH Not Reportable 05/13/25 00:17 Ur Specific [place] Not Reportable 05/13/25 00:17 Urine Protein Not Reportable 05/13/25 00:17 Urine Glucose (UA) Not Reportable 05/13/25 00:17 Urine Ketones Not Reportable 05/13/25 00:17 Urine Blood Not Reportable 05/13/25 00:17 Urine Nitrate Not Reportable 05/13/25 00:17 Urine Bilirubin Not Reportable 05/13/25 00:17 Urine Urobilinogen Not Reportable 05/13/25 00:17 Ur Leukocyte Esterase Not Reportable 05/13/25 00:17 Urine RBC >100 /hpf (0-2) H 05/13/25 00:17 Urine WBC 5-10 /hpf (0-5) H 05/13/25 00:17 Ur Squamous Epith Cells 0-4 /hpf (0-5) H 05/13/25 00:17 Amorphous Sediment Not Reportable 05/13/25 00:17 Urine Bacteria None /hpf (NONE) 05/13/25 00:17 Blood Type A Negative 05/12/25 23:58 Rho(D) Type Rh negative 05/12/25 23:58 Antibody Screen Negative 05/12/25 23:58 Discharge Plan Discharge Patient Disposition: Home Clinical Impression: Vaginal bleeding Condition: Stable Prescriptions: No Action aspirin [Adult Aspirin Regimen] 81 mg tablet,delayed release (DR/EC) 81 mg PO DAILY metoprolol tartrate 50 mg tablet 50 mg PO BID levothyroxine [Synthroid] 100 mcg tablet 100 mcg PO DAILY atorvastatin 10 mg tablet 10 mg PO DAILY cholecalciferol (vitamin D3) 50 mcg (2,000 unit) capsule 50 mcg PO DAILY albuterol sulfate 90 mcg/actuation HFA aerosol inhaler 1 inh INHALATION QID chlorthalidone 25 mg tablet See Rx Instructions .ROUTE .COMPLEX Qty: 90 3RF Dose Instruction: TAKE 1 TABLET BY MOUTH EVERY DAY Rx Instructions: TAKE 1 TABLET BY MOUTH EVERY DAY lisinopril 10 mg tablet See Rx Instructions .ROUTE .COMPLEX Qty: 90 3RF Dose Instruction: TAKE 1 TABLET BY MOUTH EVERY DAY Rx Instructions: TAKE 1 TABLET BY MOUTH EVERY DAY Discharge Orders: Discharge ED (Routine); Ordered 05/13/25 Ordered By: Francisco J Yoder Referrals: Roxanna Diaz MD [Primary Care Provider, Internal Medicine] Stephen Mrcae MD [Physician, [facility]] - 4-7 days Discharge Diet: Advance as tolerated Discharge Activity: Resume usual activity Patient Instructions: Abnormal (Dysfunctional) Uterine Bleeding (ED) Print Language: Maldivian Coding Level of Care Code ED Pack Master for Chuy Butler
[2025-05-13 00:16] LABS: Hematocrit 41.5 % (36-47); Hemoglobin 14.10 g/dL (11.27-16.99); Mean Corpuscular HGB Conc 34.0 g/dL (30-55); Mean Corpuscular Hemoglobin 31.0 pg (27-33); Mean Corpuscular Volume 91.2 fl (85-98); Nucleated Red Blood Cells % 0 %; Platelet Count 161 10^3/cmm (157-399); Red Blood Count 4.55 10^6/uL (3.85-5.65); White Blood Count 7.90 10^3/uL (3.29-11.43)
[2025-05-13 00:27] LABS: INR 0.91 (0.8-1.2); Prothrombin Time 13.00 SECONDS (12.1-14.9)
[2025-05-13 00:28] LABS: Partial Thromboplastin Time 29.4 SECONDS (23.9-36.7)
[2025-05-13 00:33] LABS: Alanine Aminotransferase 20 U/L (0-33); Albumin Level 4.1 g/dL (3.5-5.2); Alkaline Phosphatase 158 U/L (35-105); Anion Gap 16.7 (5-19); Aspartate Amino Transferase 26 U/L (0-32); Blood Urea Nitrogen 28 mg/dL (8-23); Calcium 9.4 mg/dL (8.5-10.5); Carbon Dioxide 26 mmol/L (22-29); Chloride 100 mmol/L (98-107); Creatinine Clr Calc Pharmacy 29.1296; Globulin 3.0 g/dL (1.3-4.6); Glucose 116 mg/dL (65-115); Osmolality Calculated 294 mOsm/kg (285-295); Potassium 3.7 mmol/L (3.5-5.1); Sodium 139 mmol/L (136-145); Total Protein 7.1 g/dL (6.6-8.7)
[2025-05-13 00:34] LABS: Lactic Sepsis W/Reflex 1.3 mmol/L (0.5-2.2)
[2025-05-13 00:47] LABS: Add Urine Microscopic? YES
[2025-05-13 00:48] LABS: UA Slide Review UA Slide Review Perf
[2025-05-13 01:38] VITALS: BP 132/75; PULSE 63; RESP 16; O2SAT 99
--- NOTE | 2025-05-16 07:40 | DCPLANNER ---
messaged [facility] for er f/u
== END 2025-05-13 01:45 | disposition home or self-care (01) ==
PROVIDERS: Physician Assistant; Emergency Provider Emergency Medicine; PCP Internal Medicine
DX: N93.9 Abnormal uterine and vaginal bleeding, unspecified (principal); Z79.82 Long term (current) use of aspirin; E78.5 Hyperlipidemia, unspecified; I10 Essential (primary) hypertension
CPT/HCPCS: 36415; 74176; 80053; 81001; 83605; 85025; 85610; 85730; 86850; 86900; 87086; 99284

== ENCOUNTER 2025-08-09 14:40 | Oncology outpatient (recurring) (ONCR) | payer MEDICARE, BC, SELFPAY ==
[2025-08-09 15:24] LABS: Hematocrit 39.7 % (36-47); Hemoglobin 13.40 g/dL (11.27-16.99); Mean Corpuscular HGB Conc 33.8 g/dL (30-55); Mean Corpuscular Hemoglobin 30.4 pg (27-33); Mean Corpuscular Volume 90.0 fl (85-98); Nucleated Red Blood Cells % 0 %; Platelet Count 150 10^3/cmm (157-399); Red Blood Count 4.41 10^6/uL (3.85-5.65); White Blood Count 7.07 10^3/uL (3.29-11.43)
[2025-08-09 15:40] LABS: INR 0.94 (0.8-1.2); Prothrombin Time 13.20 SECONDS (12.1-14.9)
[2025-08-09 15:56] LABS: Alanine Aminotransferase 26 U/L (0-33); Albumin Level 3.8 g/dL (3.5-5.2); Alkaline Phosphatase 171 U/L (35-105); Anion Gap 15.8 (5-19); Aspartate Amino Transferase 34 U/L (0-32); Blood Urea Nitrogen 23 mg/dL (8-23); CA 125 24.5 U/mL (0-35); Calcium 9.3 mg/dL (8.5-10.5); Carbon Dioxide 24 mmol/L (22-29); Chloride 100 mmol/L (98-107); Globulin 3.1 g/dL (1.3-4.6); Glucose 110 mg/dL (65-115); Osmolality Calculated 286 mOsm/kg (285-295); Potassium 3.8 mmol/L (3.5-5.1); Sodium 136 mmol/L (136-145); Total Protein 6.9 g/dL (6.6-8.7)
== END 2025-08-31 23:59 | disposition home or self-care (01) ==
LOC: ONCMED 14:41
PROVIDERS: PCP Internal Medicine; Visit Provider Internal Medicine Medical Oncology
DX: C55 Malignant neoplasm of uterus, part unspecified (principal); Z95.2 Presence of prosthetic heart valve; Z79.899 Other long term (current) drug therapy
CPT/HCPCS: 36415; 80053; 85025; 85610; 86304; 99205

== ENCOUNTER → 2025-08-11 08:49 | Outpatient (BNVA) | payer MEDICARE, BC, SELFPAY | PROVIDERS: PCP Internal Medicine; Visit Provider Student in an Organized Health Care Education/Training Program | DX: Z95.828 Presence of other vascular implants and grafts (principal) | CPT/HCPCS: 99204 ==

== ENCOUNTER 2025-08-17 05:32 | Day surgery (SDC) | payer MEDICARE, BC, SELFPAY ==
--- NOTE | 2025-08-16 22:49 | ANES.PREANE2 ---
Pre-Anesthetic Assessment Height/Weight: Height 5 ft 2 in Preop Diagnosis: Carcinosarcoma of the uterus Operation Date: 08/17/25 07:00 Proposed Procedures p Port a Cath Insertion 79027 Z95.828 C55(Not Applicable) - Richard Ray MD Was Beta Rachna taken within 24 hours: Yes Was Clonidine taken within 24 hours: N/A Social No alcohol and No tobacco Exam alert, oriented x 3, clear to auscultation bilaterally and regular rate & rhythm Airway Submandibular: within normal limits Cervical ROM: within normal limits Mallampati: Class III Dentition: full Comments: Comments: Multiple missing teeth, denies any loose Anesthetic Plan ASA status: 4 Anesthesia: MAC Other: No prior issues with anesthesia NPO since yesterday evening History of hypertension on lisinopril and metoprolol Hypothyroidism on Synthroid Patient with stage Ia carcinosarcoma of the uterus Labs reviewed from 08/09/2025 and acceptable for procedure today. Plan for MAC anesthesia with local view surgeon Medications/Allergies Home Medications ?Medication ?Instructions ?Recorded ?Confirmed ?Last Taken ?Type albuterol sulfate 90 mcg/actuation 1 inh inhalation QID 05/15/20 08/16/25 Unknown History aerosol inhaler aspirin 81 mg tablet,delayed 81 mg PO DAILY 05/15/20 08/16/25 08/15/25 19:30 History release (Adult Aspirin Regimen) atorvastatin 10 mg tablet 10 mg PO DAILY 05/15/20 08/16/25 08/15/25 19:30 History cholecalciferol (vitamin D3) 50 50 mcg PO DAILY 05/15/20 08/16/25 08/15/25 History mcg (2,000 unit) capsule levothyroxine 100 mcg tablet 100 mcg PO DAILY 05/15/20 08/17/25 08/17/25 History (Synthroid) metoprolol tartrate 50 mg tablet 50 mg PO BID 05/15/20 08/17/25 08/17/25 History chlorthalidone 25 mg tablet 25 mg PO DAILY 08/16/25 08/16/25 08/15/25 19:30 History lisinopril 10 mg tablet 10 mg PO DAILY 08/16/25 08/16/25 08/15/25 History Allergies Allergy/AdvReac Type Severity Reaction Status Date / Time Iodinated Contrast Media Allergy unknown Verified 08/16/25 11:00 Penicillins Allergy N/V Verified 08/16/25 11:00 [facility] Anesthesia Medical History (Updated 08/09/25 @ 14:49 by Chris Mariano MD) History of hypertension Hx of hyperlipidemia History of asthma Hx of carotid stenosis Surgical History (Updated 08/11/25 @ 08:58 by Evan Monet LPN) Hx of aortic valve replacement Family History (Updated 08/11/25 @ 08:59 by Evan Monet LPN) Grandmother Breast cancer Other Hypertension Social History Smoking and tobacco/nicotine status: never used tobacco/nicotine Alcohol intake: never Substance/Drug Use: never Data Anesthesia Cardiac Studies: Echocardiogram 06/08/24 Echocardiogram Ultrasound 02/01/21
[2025-08-17] VITALS (8 sets, daily range): BP systolic 93–135; BP diastolic 40–75; PULSE 57–64; RESP 16–17; TEMP 36.2–36.3; O2SAT 96–98; BMI 36.2
--- NOTE | 2025-08-17 05:53 | SC_ITS ---
WS: [id number] C ARM fluoroscopy of the Port-A-Cath insertion, 08/17/2025 Clinical Data: Port-A-Cath insertion Comparison: None. Findings: Dr. Ray inserted a Port-A-Cath into the right internal jugular vein ending in the superior vena cava. SC/C-arm Fluoroscopy [id number] Impression: Insertion right Port-A-Cath.
--- NOTE | 2025-08-17 07:06 | W.PM.OPSUD ---
Surgery/Procedure H&P Update DATE OF PROCEDURE: August 17, 2025 DATE H&P PERFORMED: 08/11/25 H&P UPDATE INFORMATION: I have reviewed H&P completed within last 30 days, I have examined patient prior to procedure, No changes to prior documentation and Risks and benefits of the procedure reviewed PREOP DIAGNOSIS: Carcinosarcoma of the uterus PLANNED PROCEDURE: Operation Date: 08/17/25 07:00 Proposed Procedures p Port a Cath Insertion 50747 [id number] C55(Not Applicable) - Richard Ray MD
[2025-08-17] MEDS: lidocaine-epi 1% PF 1:200,000 30 mL SDV INJECTION (07:29)
[2025-08-17] MEDS: BUPivacaine 0.25% INJ 10 mL INJECTION (07:29)
[2025-08-17] MEDS: heparin, porcine 1,000 unit/mL INJ 10 mL 10000 UNIT IRRIGATION (07:29)
--- NOTE | 2025-08-17 08:00 | P.OP_ITS ---
Operative Report Date of procedure: August 17, 2025 Pre-op diagnosis: Uterine cancer Post-op diagnosis: same Post-op findings: Tip of catheter at atriocaval junction confirmed with intraoperative fluoroscopy Procedure done: Port-A-Cath insertion Implants: Port-A-Cath Specimens removed/disposition: N/A Pathology: none sent Surgeon: Richard Ray MD Enterprise Architect Manager: N/A Anesthesia: MAC Estimated blood loss (mL): 10 Complications: N/A Findings: Tip of catheter at atriocaval junction confirmed with intraoperative fluoroscopy Condition: stable Disposition: same day Brief History: 74-year-old female who presented for Port-A-Cath insertion for chemotherapy administration. Discussed risk and benefits and patient agreed to proceed with Port-A-Cath insertion. Procedure: Patient was brought into the operating room and a timeout was carried out. Procedure was done under MAC. Patient was placed supine with the arms tucked and in Trendelenburg. Patient was prepped and draped in the usual sterile fashion. Using ultrasound guidance the right internal jugular vein was accessed. A guidewire was then placed down to the atriocaval junction using fluoroscopy. The finder needle was removed and the guidewire was secured. I then turned my attention to creating a pocket over the right chest. Make sure to locally infiltrated using plain lidocaine and bupivacaine at the site of the pocket and throughout the tunnel site. I confirmed adequate hemostasis at the pocket. I then proceeded to place the port that was already preassembled and flushed with heparinized saline and the chest pocket. I tunneled the catheter from the chest to the neck at the site where I accessed the internal jugular vein. I measured and adjusted the length of the catheter so it would reach the atrial caval junction. At this point, I used a dilator to dilate the tract into the internal jugular vein using fluoroscopy. I removed the guidewire and proceeded to thread the central venous catheter through the introducer. In the process, I removed the sheath as a completely pushed the catheter into the internal jugular vein. I then confirmed adequate placement of the catheter by performing intraoperative interpretation of fluoroscopy. The tip of the catheter was confirmed to be placed in the atriocaval junction. There were no kinks noted throughout the trajectory of the catheter. I then proceeded to test the port and was satisfied with its functionality. I proceeded to flushed the catheter without any issues. I then hep-locked the port. Skin was closed using deep dermal 3-0 Vicryl, subcuticular 4-0 Monocryl, and Dermabond. Patient was then transferred to PACU without any complications.
== END 2025-08-17 09:00 | disposition home or self-care (01) ==
PROVIDERS: PCP Internal Medicine; Visit Provider Student in an Organized Health Care Education/Training Program
PROC: (CPT 36561; principal; 2025-08-17 07:00)
DX: C55 Malignant neoplasm of uterus, part unspecified (principal); I10 Essential (primary) hypertension; E03.9 Hypothyroidism, unspecified; Z79.82 Long term (current) use of aspirin; E78.5 Hyperlipidemia, unspecified; J45.909 Unspecified asthma, uncomplicated; Z80.3 Family history of malignant neoplasm of breast; Z85.42 Personal history of malignant neoplasm of other parts of uterus; Z95.2 Presence of prosthetic heart valve
CPT/HCPCS: 36561; 76000; 77001; C1750; C1788; J1644; J2704; J3010; J3373; J3490; J7030; J9999